=== PATIENT | female | born 1955 | race Caucasian/White ===

== ENCOUNTER 2016-11-09 22:59 | Emergency (ER) | payer MEDICAID ==
[2014-11-10 06:42] VITALS: BMI 24.3
[~2016-11-09 22:59] MED LIST: CYCLOBENZAPRINE10 MG PO; IBUPROFEN800 MG PO; MOBIC7.5 MG PO; NORCO 7.5/325 T1 TA1 PO; PROTONIX40 MG PO
[2016-11-09 23:40] LABS: APPEARANCE CLEAR (CLEAR); BILIRUBIN NEGATIVE (NEGATIVE); COLOR STRAW (YELLOW); GLUCOSE NEGATIVE (NEGATIVE); KETONE NEGATIVE (NEGATIVE); LEUKOCYTE ESTERASE NEGATIVE (NEGATIVE); NITRITE NEGATIVE (NEGATIVE); PROTEIN NEGATIVE (NEGATIVE); SPECIFIC GRAVITY 1.005 (1.005-1.020); UROBILINOGEN NORMAL (NORMAL)
== END 2016-11-10 00:34 | disposition home or self-care (01) ==
LOC: D.ER 22:59
PROVIDERS: Family Medicine
DX: I87.2 Venous insufficiency (chronic) (peripheral) (principal); B19.20 Unspecified viral hepatitis C without hepatic coma; M54.2 Cervicalgia; M54.9 Dorsalgia, unspecified; F17.200 Nicotine dependence, unspecified, uncomplicated